=== PATIENT | female | born 1955 | race Caucasian/White ===

== ENCOUNTER → 2020-10-11 | Outpatient (CLI) | payer MEDICARE ==
[~2020-10-11] MED LIST: AMLO5TAB4 PO; ASPI-630 PO; CALC500T30 PO; CARV12.5 PO; CHOL-5 PO; HYDR-2761 PO; OLME40TA12 PO; SERT25TA PO
== END ==
LOC: LAB 12:36
PROVIDERS: ATTEND Surgery
DX: Z01.812 Encounter for preprocedural laboratory examination (principal); Z20.828 Contact with and (suspected) exposure to other viral communicable diseases
CPT/HCPCS: U0003

== ENCOUNTER → 2020-10-31 | Outpatient (CLI) | payer MEDICARE ==
[2020-10-16 10:49] VITALS: BP 170/66
== END ==
LOC: LAB 10:57
PROVIDERS: ATTEND Surgery
DX: Z01.812 Encounter for preprocedural laboratory examination (principal); Z20.828 Contact with and (suspected) exposure to other viral communicable diseases; C50.912 Malignant neoplasm of unspecified site of left female breast
CPT/HCPCS: U0003

== ENCOUNTER 2020-11-05 06:11 | Day surgery (SDC) | payer MEDICARE ==
[~2020-11-05] VITALS: Ht 149.9 cm; Wt 60.0 kg
[2020-11-05] MEDS ORDERED: DEXAMETHASONE SOD PHOS 4 MG/ML VIAL ONE (06:32)
[2020-11-05] MEDS ORDERED: LIDOCAINE 2% PF 5 ML VIAL. ONE (06:32)
[2020-11-05] MEDS ORDERED: PROPOFOL 10 MG/ML (20ML) VIAL. IV ONE (06:32)
[2020-11-05] MEDS ORDERED: ONDANSETRON PF 4 MG/2 ML VIAL. ONE (06:32)
[2020-11-05] MEDS ORDERED: HYDROmorphone 2 MG/ML VIAL IV PRN (07:00)
[2020-11-05] MEDS ORDERED: MORPHINE SULFATE 2 MG/ML VIAL. IV PRN (07:00)
[2020-11-05] MEDS ORDERED: IV RINGERS,LACTATED 1000ML 1,000 ML IV SCH (07:00)
[2020-11-05] MEDS ORDERED: ONDANSETRON PF 4 MG/2 ML VIAL. IV PRN (07:00)
[2020-11-05] MEDS ORDERED: ISOSULFAN BLUE 1% 50 MG/5 ML VIAL. SQ ONE (07:00)
[2020-11-05] MEDS ORDERED: LIDOCAINE 1% PF 2 ML VIAL. ID PRN (07:00)
[2020-11-05] MEDS ORDERED: PROCHLORPERAZINE 10 MG/2 ML VIAL. IV PRN (07:00)
[2020-11-05] MEDS ORDERED: fentaNYL PF VIAL 100 MCG/2 ML VIAL IV PRN ×2 (07:00)
[2020-11-05] MEDS ORDERED: MIDAZOLAM HCL/PF 2 MG/2 ML VIAL. ONE (07:13)
[2020-11-05] MEDS ORDERED: fentaNYL PF VIAL 100 MCG/2 ML VIAL ONE (07:14)
[2020-11-05] MEDS ORDERED: GLYCOPYRROLATE 1 MG/5 ML VIAL. ONE (07:57)
[2020-11-05] MEDS ORDERED: PHENYLEPHRINE in 0.9% NACL PF 1 MG/10 ML SYRINGE. IV ONE (08:00)
--- NOTE | 2020-11-05 08:33 | DISCH ---
DISCHARGE INSTRUCTIONS Condition on Discharge Condition on Discharge: Stable Activity After Discharge Activity Instructions for Disc: Resume previous activity Diet after Discharge Diet after Discharge: Regular Wound Incision Care Wound/Incision Care: Other, see below (keep dressing clean and dry X 72 hours, may then remove and shower) Follow-Up Follow up with: Dr Wright in 1 week in office, call for appointment, KAYLIN WRIGHT MD Nov 05, 2020 08:33
--- NOTE | 2020-11-05 08:37 | PDOC4 ---
Operative Note Operative Note Operative Note: Preoperative Diagnosis: Left breast cancer Postoperative Diagnosis: Same Procedure: Reexcision left lumpectomy Surgeon: Terrence [facility] Staff Nurse: Rivka RESTREPO Anesthesia: General EBL: 5 mL Specimen: Reexcision left lumpectomy superior margin, short stitch superficial, long stitch lateral Drains: None Complications: None Indication: The patient is a 65-year-old female who underwent a left lumpectomy for invasive carcinoma. On the final pathology tumor extended to the superior margin. The other margins were clear. We recommend reexcision of the superior margin. The risks of surgery were discussed with the patient which include bleeding, infection, wound healing problems, scar tissue, pain, anesthetic risk, potential need for additional surgery procedure. She understands and would like to proceed. Description: The patient was taken to the operating room and placed supine in the operating table. General anesthesia was performed. The left breast was prepped with ChloraPrep and draped in a standard surgical manner. The prior scar was located at the 12 o'clock position relatively close to the areola. The old scar was reexcised with a scalpel. Cautery dissection was carried down to the prior breast cavity. The previous seroma was suctioned. The superior margin was clarified. With mostly cautery a wedge segment of the entire superior margin was excised. The dissection was carried down to the pectoralis muscle. The excised specimen was then marked with a short stitch at the superficial aspect and a long silk stitch at the lateral aspect. The specimen was sent to pathology. No other abnormalities were seen. The subcutaneous tissue was approximated with 3-0 Vicryl and skin closed with 4-0 Monocryl. A sterile dressing was then applied. The patient tolerated the procedure well and was sent to the recovery room in stable condition. At the end of the case all counts were correct. KAYLIN WRIGHT MD Nov 05, 2020 08:37
[2020-11-05] MEDS ORDERED: HYDROcodone/APAP 5/325MG 1 TAB TABLET PO ONE (09:15)
[2020-11-05 09:49] VITALS: BP 158/63
--- NOTE | 2020-11-07 15:08 | PATHOLOGY ---
[facility] Accession Number: [id number] . 01 Material submitted: . breast - RE EXCISION OF LEFT BREAST SUPERIOR MARGIN. Modifiers: left . 01 Clinical history: . BREAST CANCER LEFT . 02 Diagnosis: Breast and focal attached skeletal muscle tissue, left breast superior margin re-excision: - Previous lumpectomy site changes showing reactive fibrosis, fat necrosis, foreign body giant cell reaction, and focal squamous metaplasia of biopsy cavity lining - no residual invasive ductal carcinoma identified. - New superior margin of resection negative for tumor. - Fibrocystic changes. - Sclerosing adenosis and columnar cell change,focal. - Focal microcalcifications identified. (JPM:mml; 11/07/2020) [facility] 11/07/2020 1444 Local . 02 Electronically signed: . Darci Patel MD, Pathologist NPI- [id number] . 01 Gross description: . The specimen is received in formalin, labeled "Vicky Davie, reexcision L breast superior margin, short superficial, long lateral". Received is a 5 g lumpectomy specimen measuring 5.9 cm from medial to lateral, 3.1 cm from superficial/anterior to deep/posterior, and 0.8 cm from superior to inferior. The specimen is inked as follows: Superior-blue, inferior-green, lateral-red, medial-yellow, superficial/anterior-black, deep/posterior-orange. Sectioning reveals bright yellow, lobulated to pale goss cut surfaces with fat necrosis identified. No distinct nodules or lesions are noted grossly. The specimen is submitted entirely from lateral to medial aspects in cassettes A1 through A9. The cold ischemic time and time in formalin are not provided. The time out of formalin is 9:50 p.m. on 11/06/2020. (CAA; 11/06/2020) QAC/QAC 11/06/2020 1548 Local . 02 Pathologist provided ICD-10: N60.32, N64.1, N60.82, N60.12, N60.22 . 02 CPT . 259994 Specimen Comment: A courtesy copy of this report has been sent to [phone] Specimen Comment: Report sent to Performed at: 01 [facility] [address], [place] [id number] MD Bulmaro Steel MD Phone: [phone] Performed at: 02 [facility] [address], [place] [id number] MD Darci Patel MD Phone: [phone]
== END 2020-11-05 10:02 | disposition home or self-care (01) ==
LOC: SURG 06:11
PROVIDERS: ATTEND Surgery
DX: C50.912 Malignant neoplasm of unspecified site of left female breast (principal); N60.32 Fibrosclerosis of left breast; N64.1 Fat necrosis of breast; N60.82 Other benign mammary dysplasias of left breast; N60.22 Fibroadenosis of left breast; F41.9 Anxiety disorder, unspecified; M19.90 Unspecified osteoarthritis, unspecified site; Z88.8 Allergy status to other drugs, medicaments and biological substances; Z79.82 Long term (current) use of aspirin; Z90.12 Acquired absence of left breast and nipple; Z98.890 Other specified postprocedural states; Z81.1 Family history of alcohol abuse and dependence; Z82.3 Family history of stroke; Z80.3 Family history of malignant neoplasm of breast; Z98.891 History of uterine scar from previous surgery; Z82.49 Family history of ischemic heart disease and other diseases of the circulatory system
CPT/HCPCS: 19301; J0690; J1100; J2370; J2405; J2704; J3010; J3490; J7120; 88307; J2250; Q9968

== ENCOUNTER → 2020-11-19 | Outpatient (CLI) | payer MEDICARE ==
[2020-11-05 09:49] VITALS: BP 158/63
[2020-11-19 10:42] LABS: BASO # 0.1 x10^3/uL (0.0-0.2); BASO % 1 % (0-3); EOS # 0.2 x10^3/uL (0.0-0.7); EOS % 2 % (0-3); HEMATOCRIT 39.1 % (36.0-47.0); HEMOGLOBIN 13.2 g/dL (12.0-15.5); LYMPH # 0.8 x10^3/uL (1.0-4.8); LYMPH % 9 % (24-48); MEAN CORPUSCULAR HEMOGLOBIN 31 pg (25-35); MEAN CORPUSCULAR HGB CONC 34 g/dL (31-37); MEAN CORPUSCULAR VOLUME 91 fL (79-100); MONO # 0.8 x10^3/uL (0.0-1.1); MONO % 8 % (0-9); NEUT # 7.3 x10^3/uL (1.8-7.7); NEUT % 80 % (31-73); PLATELET COUNT 255 x10^3/uL (140-400); RED BLOOD COUNT 4.29 x10^6/uL (3.50-5.40); RED CELL DISTRIBUTION WIDTH 12.8 % (11.5-14.5); WHITE BLOOD COUNT 9.2 x10^3/uL (4.0-11.0)
[2020-11-19 10:54] LABS: CALCIUM 8.3 mg/dL (8.5-10.1); CREATININE 0.5 mg/dL (0.6-1.0); GFR 123.1; POTASSIUM 3.7 mmol/L (3.5-5.1)
[2020-11-19 10:59] LABS: ALBUMIN 3.4 g/dL (3.4-5.0); TOTAL BILIRUBIN 0.4 mg/dL (0.2-1.0); TOTAL PROTEIN 6.7 g/dL (6.4-8.2)
== END ==
LOC: ONCLAB 10:15
PROVIDERS: ATTEND Internal Medicine Hematology & Oncology
DX: C50.912 Malignant neoplasm of unspecified site of left female breast (principal)
CPT/HCPCS: 36415; 80053; 85025

== ENCOUNTER → 2020-11-26 | Outpatient (CLI) | payer MEDICARE ==
[2020-11-05 09:49] VITALS: BP 158/63
[2020-11-26 11:18] LABS: CALCIUM 8.5 mg/dL (8.5-10.1); CREATININE 0.5 mg/dL (0.6-1.0); GFR 123.1
[2020-11-26 11:22] LABS: BASO # 0.1 x10^3/uL (0.0-0.2); BASO % 2 % (0-3); EOS # 0.2 x10^3/uL (0.0-0.7); EOS % 4 % (0-3); HEMATOCRIT 36.2 % (36.0-47.0); HEMOGLOBIN 12.1 g/dL (12.0-15.5); LYMPH # 0.9 x10^3/uL (1.0-4.8); LYMPH % 20 % (24-48); MEAN CORPUSCULAR HEMOGLOBIN 30 pg (25-35); MEAN CORPUSCULAR HGB CONC 34 g/dL (31-37); MEAN CORPUSCULAR VOLUME 90 fL (79-100); MONO # 0.2 x10^3/uL (0.0-1.1); MONO % 5 % (0-9); NEUT # 3.2 x10^3/uL (1.8-7.7); NEUT % 70 % (31-73); PLATELET COUNT 237 x10^3/uL (140-400); RED BLOOD COUNT 4.01 x10^6/uL (3.50-5.40); RED CELL DISTRIBUTION WIDTH 12.4 % (11.5-14.5); WHITE BLOOD COUNT 4.6 x10^3/uL (4.0-11.0)
[2020-11-26 11:23] LABS: ALBUMIN 3.2 g/dL (3.4-5.0); TOTAL BILIRUBIN 0.3 mg/dL (0.2-1.0); TOTAL PROTEIN 6.3 g/dL (6.4-8.2)
== END ==
LOC: ONCLAB 10:12
PROVIDERS: ATTEND Internal Medicine Hematology & Oncology
DX: C50.912 Malignant neoplasm of unspecified site of left female breast (principal)
CPT/HCPCS: 36415; 80053; 85025

== ENCOUNTER → 2020-11-27 | Outpatient (CLI) | payer MEDICARE ==
[2020-11-05 09:49] VITALS: BP 158/63
--- NOTE | 2020-11-27 16:59 | CARD ---
MR#: [id number] Date of Study: 11/27/2020 Ordering Physician: PAPITO ANGUIANO, Referring Physician: PAPITO ANGUIANO, Tech: Annalee Garner [facility] APPROVED REPORT EXAM: Two-dimensional and M-mode echocardiogram with Doppler and color Doppler. Other Information Quality : AverageHR: 72bpm Rhythm : NSRTechnically limited study due to body habitus. INDICATION Dyspnea 2D DIMENSIONS RVDd3.5 (2.9-3.5cm)Left Atrium(2D)4.1 (1.6-4.0cm) IVSd0.8 (0.7-1.1cm)Aortic Root(2D)3.2 (2.0-3.7cm) LVDd5.1 (3.9-5.9cm)LVOT Diameter1.9 (1.8-2.4cm) PWd0.9 (0.7-1.1cm)LVDs2.7 (2.5-4.0cm) FS (%) 47.6 %SV96.4 ml Aortic Valve AoV Peak Jefferson.213.1cm/sAoV VTI46.6cm AO Peak GR.18.2mmHgLVOT Peak Jefferson.204.3cm/s AO Mean GR.9mmHgAVA (VMAX)2.70cm2 AI P 1/2 Mgsp798yx Mitral Valve MV E Fhcfillq542.5cm/sMV DECEL CMFP256qg MV A Wnykqewg61.7cm/sE/A Ratio1.0 Pulmonary Valve PV Peak Gbmsejkz60.5cm/s Tricuspid Valve TR P. Cezpuagm799wu/sTR Peak Gr.36mmHg Pulmonary Vein S1 Wkfowjgc37.2cm/sD2 Jkkoklxd04.4cm/s PVa vspenuzs742tcsx LEFT VENTRICLE The left ventricle is normal size. There is normal left ventricular wall thickness. The left ventricu lar systolic function is normal and the ejection fraction is within normal range. Left ventricular ej ection fraction is 55 to 60%. There is normal LV segmental wall motion. Transmitral Doppler flow vasile mcih is Grade II-pseudonormal filling dynamics. No left ventricle thrombus noted on this study. RIGHT VENTRICLE The right ventricle is normal size. There is normal right ventricular wall thickness. The right ventr icular systolic function is normal. ATRIA The left atrium is borderline dilated. The right atrium size is normal. The interatrial septum is int act with no evidence for an atrial septal defect or patent foramen ovale as noted on 2-D or Doppler i maging. AORTIC VALVE The aortic valve is normal in structure and function. Doppler and Color Flow revealed mild to moderat e aortic regurgitation. There is no significant aortic valvular stenosis. MITRAL VALVE The mitral valve is normal in structure and function. There is no evidence of mitral valve prolapse. There is no mitral valve stenosis. Doppler and Color-flow revealed mild mitral regurgitation. TRICUSPID VALVE The tricuspid valve is normal in structure and function. Doppler and Color Flow revealed mild tricusp id regurgitation. Estimated PAP 40 mmHg. PULMONIC VALVE The pulmonary valve is normal in structure and function. Doppler and Color Flow revealed mild pulmoni c valvular regurgitation. GREAT VESSELS The aortic root is normal in size. The ascending aorta is normal in size. The pulmonary artery is nor mal. The IVC is normal in size and collapses >50% with inspiration. PERICARDIAL EFFUSION There is no evidence of significant pericardial effusion. Critical Notification Critical Value: No <Conclusion> The left ventricle is normal size. The left ventricular systolic function is normal and the ejection fraction is within normal range. Left ventricular ejection fraction is 55 to 60%. There is normal left ventricular wall thickness. Doppler and Color Flow revealed mild to moderate aortic regurgitation. There is no significant aortic valvular stenosis. Doppler and Color-flow revealed mild mitral regurgitation. Doppler and Color Flow revealed mild tricuspid regurgitation. Estimated PAP 40 mmHg. Signed by : Hossein Claudio MD Electronically Approved : 11/27/2020 16:59:28
== END ==
LOC: ECHO 12:49
PROVIDERS: ATTEND Internal Medicine Hematology & Oncology
DX: Z01.810 Encounter for preprocedural cardiovascular examination (principal); I08.8 Other rheumatic multiple valve diseases
CPT/HCPCS: 93306

== ENCOUNTER → 2020-12-03 | Outpatient (CLI) | payer MEDICARE ==
[2020-11-05 09:49] VITALS: BP 158/63
[2020-12-03 10:09] LABS: BASO # 0.1 x10^3/uL (0.0-0.2); BASO % 3 % (0-3); EOS # 0.1 x10^3/uL (0.0-0.7); EOS % 5 % (0-3); HEMATOCRIT 35.2 % (36.0-47.0); LYMPH # 0.7 x10^3/uL (1.0-4.8); LYMPH % 26 % (24-48); MEAN CORPUSCULAR HEMOGLOBIN 31 pg (25-35); MEAN CORPUSCULAR HGB CONC 34 g/dL (31-37); MEAN CORPUSCULAR VOLUME 91 fL (79-100); MONO # 0.2 x10^3/uL (0.0-1.1); MONO % 6 % (0-9); NEUT # 1.6 x10^3/uL (1.8-7.7); NEUT % 60 % (31-73); PLATELET COUNT 274 x10^3/uL (140-400); RED BLOOD COUNT 3.89 x10^6/uL (3.50-5.40); RED CELL DISTRIBUTION WIDTH 12.6 % (11.5-14.5); WHITE BLOOD COUNT 2.6 x10^3/uL (4.0-11.0)
[2020-12-03 10:38] LABS: ALBUMIN 3.3 g/dL (3.4-5.0); ALBUMIN/GLOBULIN RATIO 1.1 (1.0-1.7); CALCIUM 8.4 mg/dL (8.5-10.1); CREATININE 0.6 mg/dL (0.6-1.0); GFR 99.7; POTASSIUM 3.9 mmol/L (3.5-5.1); TOTAL BILIRUBIN 0.3 mg/dL (0.2-1.0); TOTAL PROTEIN 6.3 g/dL (6.4-8.2)
== END ==
LOC: ONCLAB 09:51
PROVIDERS: ATTEND Internal Medicine Hematology & Oncology
DX: C50.912 Malignant neoplasm of unspecified site of left female breast (principal)
CPT/HCPCS: 36415; 80053; 85025

== ENCOUNTER → 2020-12-10 | Outpatient (CLI) | payer MEDICARE ==
[2020-12-10 10:29] LABS: BASO # 0.1 x10^3/uL (0.0-0.2); BASO % 1 % (0-3); EOS # 0.2 x10^3/uL (0.0-0.7); EOS % 3 % (0-3); HEMATOCRIT 37.4 % (36.0-47.0); HEMOGLOBIN 12.5 g/dL (12.0-15.5); LYMPH # 1.3 x10^3/uL (1.0-4.8); LYMPH % 18 % (24-48); MEAN CORPUSCULAR HEMOGLOBIN 30 pg (25-35); MEAN CORPUSCULAR HGB CONC 33 g/dL (31-37); MEAN CORPUSCULAR VOLUME 91 fL (79-100); MONO % 13 % (0-9); NEUT # 4.8 x10^3/uL (1.8-7.7); NEUT % 65 % (31-73); PLATELET COUNT 349 x10^3/uL (140-400); RED BLOOD COUNT 4.11 x10^6/uL (3.50-5.40); RED CELL DISTRIBUTION WIDTH 13.2 % (11.5-14.5); WHITE BLOOD COUNT 7.3 x10^3/uL (4.0-11.0)
[2020-12-10 10:36] LABS: CALCIUM 8.9 mg/dL (8.5-10.1); CREATININE 0.6 mg/dL (0.6-1.0); GFR 99.7; POTASSIUM 4.2 mmol/L (3.5-5.1)
[2020-12-10 10:41] LABS: ALBUMIN 3.4 g/dL (3.4-5.0); ALBUMIN/GLOBULIN RATIO 1.1 (1.0-1.7); TOTAL BILIRUBIN 0.2 mg/dL (0.2-1.0); TOTAL PROTEIN 6.6 g/dL (6.4-8.2)
== END ==
LOC: ONCLAB 10:10
PROVIDERS: ATTEND Physician Assistant
DX: C50.912 Malignant neoplasm of unspecified site of left female breast (principal); E55.9 Vitamin D deficiency, unspecified
CPT/HCPCS: 36415; 80053; 82306; 85025

== ENCOUNTER → 2020-12-17 | Outpatient (CLI) | payer MEDICARE ==
[2020-12-17 09:59] LABS: WHITE BLOOD COUNT 8.2 x10^3/uL (4.0-11.0)
[2020-12-17 10:00] LABS: HEMATOCRIT 35.2 % (36.0-47.0); HEMOGLOBIN 12.1 g/dL (12.0-15.5); MEAN CORPUSCULAR HEMOGLOBIN 31 pg (25-35); MEAN CORPUSCULAR HGB CONC 34 g/dL (31-37); MEAN CORPUSCULAR VOLUME 91 fL (79-100); RED BLOOD COUNT 3.89 x10^6/uL (3.50-5.40)
[2020-12-17 10:01] LABS: BASO # 0.1 x10^3/uL (0.0-0.2); BASO % 14 % (0-3); EOS # 0.2 x10^3/uL (0.0-0.7); EOS % 3 % (0-3); LYMPH # 0.9 x10^3/uL (1.0-4.8); LYMPH % 11 % (24-48); MONO # 0.3 x10^3/uL (0.0-1.1); MONO % 4 % (0-9); NEUT # 6.7 x10^3/uL (1.8-7.7); NEUT % 82 % (31-73); PLATELET COUNT 277 x10^3/uL (140-400); RED CELL DISTRIBUTION WIDTH 13.5 % (11.5-14.5)
[2020-12-17 10:15] LABS: ALBUMIN 3.3 g/dL (3.4-5.0); ALBUMIN/GLOBULIN RATIO 1.1 (1.0-1.7); CALCIUM 8.8 mg/dL (8.5-10.1); CREATININE 0.5 mg/dL (0.6-1.0); GFR 123.1; TOTAL BILIRUBIN 0.3 mg/dL (0.2-1.0); TOTAL PROTEIN 6.4 g/dL (6.4-8.2)
== END ==
LOC: ONCLAB 09:32
PROVIDERS: ATTEND Internal Medicine Hematology & Oncology
DX: C50.912 Malignant neoplasm of unspecified site of left female breast (principal)
CPT/HCPCS: 36415; 80053; 85025

== ENCOUNTER → 2020-12-24 | Outpatient (CLI) | payer MEDICARE ==
[2020-12-24 09:47] LABS: BASO # 0.2 x10^3/uL (0.0-0.2); BASO % 3 % (0-3); EOS # 0.3 x10^3/uL (0.0-0.7); EOS % 8 % (0-3); HEMATOCRIT 34.6 % (36.0-47.0); HEMOGLOBIN 11.6 g/dL (12.0-15.5); LYMPH # 0.8 x10^3/uL (1.0-4.8); LYMPH % 19 % (24-48); MEAN CORPUSCULAR HEMOGLOBIN 31 pg (25-35); MEAN CORPUSCULAR HGB CONC 34 g/dL (31-37); MEAN CORPUSCULAR VOLUME 92 fL (79-100); MONO # 0.4 x10^3/uL (0.0-1.1); MONO % 8 % (0-9); NEUT # 2.7 x10^3/uL (1.8-7.7); NEUT % 62 % (31-73); PLATELET COUNT 342 x10^3/uL (140-400); RED BLOOD COUNT 3.78 x10^6/uL (3.50-5.40); RED CELL DISTRIBUTION WIDTH 13.7 % (11.5-14.5); WHITE BLOOD COUNT 4.4 x10^3/uL (4.0-11.0)
[2020-12-24 10:12] LABS: CALCIUM 8.1 mg/dL (8.5-10.1); CREATININE 0.6 mg/dL (0.6-1.0); GFR 99.7; POTASSIUM 4.2 mmol/L (3.5-5.1)
[2020-12-24 10:18] LABS: ALBUMIN 3.2 g/dL (3.4-5.0); ALBUMIN/GLOBULIN RATIO 1.1 (1.0-1.7); TOTAL BILIRUBIN 0.3 mg/dL (0.2-1.0); TOTAL PROTEIN 6.2 g/dL (6.4-8.2)
== END ==
LOC: ONCLAB 09:30
PROVIDERS: ATTEND Physician Assistant
DX: C50.912 Malignant neoplasm of unspecified site of left female breast (principal)
CPT/HCPCS: 36415; 80053; 85025

== ENCOUNTER → 2020-12-31 | Outpatient (CLI) | payer MEDICARE ==
[2020-12-31 09:48] LABS: BASO # 0.2 x10^3/uL (0.0-0.2); BASO % 4 % (0-3); EOS # 0.4 x10^3/uL (0.0-0.7); EOS % 8 % (0-3); HEMATOCRIT 33.2 % (36.0-47.0); HEMOGLOBIN 11.3 g/dL (12.0-15.5); LYMPH # 0.8 x10^3/uL (1.0-4.8); LYMPH % 17 % (24-48); MEAN CORPUSCULAR HEMOGLOBIN 31 pg (25-35); MEAN CORPUSCULAR HGB CONC 34 g/dL (31-37); MEAN CORPUSCULAR VOLUME 91 fL (79-100); MONO # 0.5 x10^3/uL (0.0-1.1); MONO % 10 % (0-9); NEUT % 62 % (31-73); PLATELET COUNT 339 x10^3/uL (140-400); RED BLOOD COUNT 3.63 x10^6/uL (3.50-5.40); RED CELL DISTRIBUTION WIDTH 14.1 % (11.5-14.5); WHITE BLOOD COUNT 4.9 x10^3/uL (4.0-11.0)
[2020-12-31 09:52] LABS: CALCIUM 8.4 mg/dL (8.5-10.1); CREATININE 0.7 mg/dL (0.6-1.0); GFR 83.5; POTASSIUM 3.8 mmol/L (3.5-5.1)
[2020-12-31 09:58] LABS: ALBUMIN 3.1 g/dL (3.4-5.0); TOTAL BILIRUBIN 0.3 mg/dL (0.2-1.0); TOTAL PROTEIN 6.2 g/dL (6.4-8.2)
[2020-12-31 11:19] LABS: % BANDS 1 % (0-9); % BASOS 4 % (0-3); % EOS 5 % (0-5); % LYMPHS 18 % (24-48); % MONOS 4 % (0-10); % SEGS 68 % (35-66); NUCLEATED RBC 1; PLT ESTIMATE ADEQUATE (ADEQUATE)
== END ==
LOC: ONCLAB 09:23
PROVIDERS: ATTEND Internal Medicine Hematology & Oncology
DX: C50.912 Malignant neoplasm of unspecified site of left female breast (principal)
CPT/HCPCS: 36415; 80053; 85007; 85025

== ENCOUNTER → 2021-01-07 | Outpatient (CLI) | payer MEDICARE ==
[2021-01-07 09:43] LABS: BASO # 0.1 x10^3/uL (0.0-0.2); BASO % 2 % (0-3); EOS # 0.3 x10^3/uL (0.0-0.7); EOS % 4 % (0-3); HEMATOCRIT 28.2 % (36.0-47.0); HEMOGLOBIN 9.8 g/dL (12.0-15.5); LYMPH # 0.7 x10^3/uL (1.0-4.8); LYMPH % 11 % (24-48); MEAN CORPUSCULAR HEMOGLOBIN 31 pg (25-35); MEAN CORPUSCULAR HGB CONC 35 g/dL (31-37); MEAN CORPUSCULAR VOLUME 91 fL (79-100); MONO # 1.1 x10^3/uL (0.0-1.1); MONO % 18 % (0-9); NEUT # 3.9 x10^3/uL (1.8-7.7); NEUT % 65 % (31-73); PLATELET COUNT 353 x10^3/uL (140-400); RED BLOOD COUNT 3.11 x10^6/uL (3.50-5.40); WHITE BLOOD COUNT 6.1 x10^3/uL (4.0-11.0)
[2021-01-07 09:51] LABS: CALCIUM 8.3 mg/dL (8.5-10.1); CREATININE 0.7 mg/dL (0.6-1.0); GFR 83.5; POTASSIUM 3.1 mmol/L (3.5-5.1)
[2021-01-07 09:57] LABS: ALBUMIN 2.5 g/dL (3.4-5.0); ALBUMIN/GLOBULIN RATIO 0.7 (1.0-1.7); TOTAL BILIRUBIN 0.4 mg/dL (0.2-1.0); TOTAL PROTEIN 6.1 g/dL (6.4-8.2)
== END ==
LOC: ONCLAB 08:54
PROVIDERS: ATTEND Internal Medicine Hematology & Oncology
DX: C50.912 Malignant neoplasm of unspecified site of left female breast (principal)
CPT/HCPCS: 36415; 80053; 85025

== ENCOUNTER → 2021-01-14 | Outpatient (CLI) | payer MEDICARE ==
[2021-01-14 11:06] LABS: BASO # 0.1 x10^3/uL (0.0-0.2); BASO % 2 % (0-3); EOS # 0.2 x10^3/uL (0.0-0.7); EOS % 2 % (0-3); HEMATOCRIT 26.3 % (36.0-47.0); HEMOGLOBIN 9.1 g/dL (12.0-15.5); LYMPH # 0.6 x10^3/uL (1.0-4.8); LYMPH % 7 % (24-48); MEAN CORPUSCULAR HEMOGLOBIN 31 pg (25-35); MEAN CORPUSCULAR HGB CONC 35 g/dL (31-37); MEAN CORPUSCULAR VOLUME 90 fL (79-100); MONO # 1.2 x10^3/uL (0.0-1.1); MONO % 14 % (0-9); NEUT # 6.4 x10^3/uL (1.8-7.7); NEUT % 75 % (31-73); PLATELET COUNT 434 x10^3/uL (140-400); RED BLOOD COUNT 2.93 x10^6/uL (3.50-5.40); WHITE BLOOD COUNT 8.6 x10^3/uL (4.0-11.0)
[2021-01-14 11:23] LABS: ALBUMIN 2.3 g/dL (3.4-5.0); ALBUMIN/GLOBULIN RATIO 0.6 (1.0-1.7); CALCIUM 8.5 mg/dL (8.5-10.1); CREATININE 1.3 mg/dL (0.6-1.0); GFR 40.9; TOTAL BILIRUBIN 0.3 mg/dL (0.2-1.0); TOTAL PROTEIN 6.1 g/dL (6.4-8.2)
[2021-01-14 11:24] LABS: POTASSIUM 2.6 mmol/L (3.5-5.1)
== END ==
LOC: ONCLAB 08:50
PROVIDERS: ATTEND Physician Assistant
DX: C50.912 Malignant neoplasm of unspecified site of left female breast (principal)
CPT/HCPCS: 36415; 80053; 85025

== ENCOUNTER → 2021-01-21 | Outpatient (CLI) | payer MEDICARE ==
[2021-01-21 10:58] LABS: CALCIUM 8.6 mg/dL (8.5-10.1); CREATININE 1.7 mg/dL (0.6-1.0); POTASSIUM 5.1 mmol/L (3.5-5.1)
[2021-01-21 11:04] LABS: ALBUMIN 2.3 g/dL (3.4-5.0); ALBUMIN/GLOBULIN RATIO 0.6 (1.0-1.7); TOTAL BILIRUBIN 0.4 mg/dL (0.2-1.0); TOTAL PROTEIN 6.2 g/dL (6.4-8.2)
[2021-01-21 11:10] LABS: BASO # 0.2 x10^3/uL (0.0-0.2); BASO % 2 % (0-3); EOS # 0.2 x10^3/uL (0.0-0.7); EOS % 3 % (0-3); HEMATOCRIT 25.5 % (36.0-47.0); HEMOGLOBIN 8.7 g/dL (12.0-15.5); LYMPH # 0.6 x10^3/uL (1.0-4.8); LYMPH % 7 % (24-48); MEAN CORPUSCULAR HEMOGLOBIN 31 pg (25-35); MEAN CORPUSCULAR HGB CONC 34 g/dL (31-37); MEAN CORPUSCULAR VOLUME 91 fL (79-100); MONO # 1.1 x10^3/uL (0.0-1.1); MONO % 13 % (0-9); NEUT # 6.2 x10^3/uL (1.8-7.7); NEUT % 76 % (31-73); PLATELET COUNT 481 x10^3/uL (140-400); RED BLOOD COUNT 2.81 x10^6/uL (3.50-5.40); RED CELL DISTRIBUTION WIDTH 14.5 % (11.5-14.5); WHITE BLOOD COUNT 8.2 x10^3/uL (4.0-11.0)
== END ==
LOC: ONCLAB 09:36
PROVIDERS: ATTEND Internal Medicine Hematology & Oncology
DX: C50.912 Malignant neoplasm of unspecified site of left female breast (principal)
CPT/HCPCS: 36415; 80053; 85025

== ENCOUNTER → 2021-01-28 | Outpatient (CLI) | payer MEDICARE ==
[2021-01-28 10:35] LABS: BASO # 0.1 x10^3/uL (0.0-0.2); BASO % 2 % (0-3); EOS # 0.2 x10^3/uL (0.0-0.7); EOS % 3 % (0-3); HEMATOCRIT 24.2 % (36.0-47.0); HEMOGLOBIN 8.2 g/dL (12.0-15.5); LYMPH # 0.6 x10^3/uL (1.0-4.8); LYMPH % 10 % (24-48); MEAN CORPUSCULAR HEMOGLOBIN 30 pg (25-35); MEAN CORPUSCULAR HGB CONC 34 g/dL (31-37); MEAN CORPUSCULAR VOLUME 89 fL (79-100); MONO # 0.8 x10^3/uL (0.0-1.1); MONO % 13 % (0-9); NEUT # 4.5 x10^3/uL (1.8-7.7); NEUT % 72 % (31-73); PLATELET COUNT 317 x10^3/uL (140-400); RED BLOOD COUNT 2.71 x10^6/uL (3.50-5.40); RED CELL DISTRIBUTION WIDTH 14.3 % (11.5-14.5); WHITE BLOOD COUNT 6.3 x10^3/uL (4.0-11.0)
[2021-01-28 10:49] LABS: ALBUMIN 2.4 g/dL (3.4-5.0); ALBUMIN/GLOBULIN RATIO 0.6 (1.0-1.7); CALCIUM 8.3 mg/dL (8.5-10.1); CREATININE 1.6 mg/dL (0.6-1.0); GFR 32.2; TOTAL BILIRUBIN 0.3 mg/dL (0.2-1.0); TOTAL PROTEIN 6.1 g/dL (6.4-8.2)
[2021-01-28 10:52] LABS: POTASSIUM 2.9 mmol/L (3.5-5.1)
== END ==
LOC: ONCLAB 09:22
PROVIDERS: ATTEND Internal Medicine Hematology & Oncology
DX: C50.912 Malignant neoplasm of unspecified site of left female breast (principal)
CPT/HCPCS: 36415; 80053; 85025

== ENCOUNTER → 2021-02-04 | Outpatient (CLI) | payer MEDICARE ==
[2021-02-04 10:11] LABS: BASO # 0.2 x10^3/uL (0.0-0.2); BASO % 2 % (0-3); EOS # 0.5 x10^3/uL (0.0-0.7); EOS % 5 % (0-3); HEMATOCRIT 23.4 % (36.0-47.0); HEMOGLOBIN 7.9 g/dL (12.0-15.5); LYMPH # 0.9 x10^3/uL (1.0-4.8); LYMPH % 10 % (24-48); MEAN CORPUSCULAR HEMOGLOBIN 30 pg (25-35); MEAN CORPUSCULAR HGB CONC 34 g/dL (31-37); MEAN CORPUSCULAR VOLUME 89 fL (79-100); MONO % 10 % (0-9); NEUT % 74 % (31-73); PLATELET COUNT 368 x10^3/uL (140-400); RED BLOOD COUNT 2.63 x10^6/uL (3.50-5.40); RED CELL DISTRIBUTION WIDTH 15.2 % (11.5-14.5); WHITE BLOOD COUNT 9.5 x10^3/uL (4.0-11.0)
[2021-02-04 10:20] LABS: CALCIUM 8.4 mg/dL (8.5-10.1); CREATININE 2.3 mg/dL (0.6-1.0); GFR 21.2; POTASSIUM 5.1 mmol/L (3.5-5.1)
[2021-02-04 10:26] LABS: ALBUMIN 2.4 g/dL (3.4-5.0); ALBUMIN/GLOBULIN RATIO 0.6 (1.0-1.7); TOTAL BILIRUBIN 0.2 mg/dL (0.2-1.0); TOTAL PROTEIN 6.3 g/dL (6.4-8.2)
[2021-02-04 11:04] LABS: URIC ACID 4.3 mg/dL (2.6-6.0)
[2021-02-04 11:41] LABS: BILIRUBIN,URINE NEGATIVE (NEG); CLARITY,URINE CLEAR; COLOR,URINE YELLOW; NITRITE,URINE NEGATIVE (NEG); PROTEIN,URINE 30 mg/dL (NEG-TRACE); UROBILINOGEN,URINE 0.2 mg/dL (0.2 mg/dL)
[2021-02-04 12:03] LABS: HYALINE CASTS, URINE FEW /HPF
[2021-02-04 12:04] LABS: WBC,URINE 20-40 /HPF (0-4)
[2021-02-04 12:05] LABS: BACTERIA,URINE FEW /HPF (0-FEW)
[2021-02-04 13:58] LABS: CALCIUM 7.7 mg/dL (8.5-10.1); GFR 24.9; POTASSIUM 4.7 mmol/L (3.5-5.1)
== END ==
LOC: ONCLAB 09:55
PROVIDERS: ATTEND Physician Assistant
DX: C50.912 Malignant neoplasm of unspecified site of left female breast (principal)
CPT/HCPCS: 36415; 80048; 80053; 81001; 84550; 85025; 87086

== ENCOUNTER → 2021-02-05 | Outpatient (CLI) | payer MEDICARE ==
--- NOTE | 2021-02-06 08:21 | KCIC ---
COMPLETE RENAL ULTRASOUND Indication: Acute kidney injury. Comparison: None. Procedure: Transabdominal ultrasound images are obtained of the kidneys and bladder. Findings: The kidneys demonstrate normal cortical echotexture. Corticomedullary differentiation is preserved. T here is no hydronephrosis. The right kidney measures 12.6 cm. The left kidney measures 12.6 cm. The urinary bladder is mostly decompressed, otherwise normal. IMPRESSION: No hydronephrosis. Electronically signed by: Mario Bradshaw MD (02/06/2021 8:18 AM) [id number]
== END ==
LOC: KCIC US 14:25
PROVIDERS: ATTEND Physician Assistant
DX: N17.9 Acute kidney failure, unspecified (principal); C50.912 Malignant neoplasm of unspecified site of left female breast
CPT/HCPCS: 76770

== ENCOUNTER → 2021-02-05 | Outpatient (CLI) | payer MEDICARE ==
[2021-02-05 10:58] LABS: CALCIUM 8.2 mg/dL (8.5-10.1); GFR 24.9
[2021-02-05 14:16] LABS: CALCIUM 7.6 mg/dL (8.5-10.1); CREATININE 1.7 mg/dL (0.6-1.0); POTASSIUM 4.6 mmol/L (3.5-5.1)
== END ==
LOC: ONCLAB 10:34
PROVIDERS: ATTEND Physician Assistant
DX: C50.912 Malignant neoplasm of unspecified site of left female breast (principal)
CPT/HCPCS: 36415; 80048

== ENCOUNTER → 2021-02-06 | Outpatient (CLI) | payer MEDICARE ==
[2021-02-06 13:52] LABS: CREATININE 1.9 mg/dL (0.6-1.0); GFR 26.4; POTASSIUM 4.4 mmol/L (3.5-5.1)
== END ==
LOC: ONCLAB 13:13
PROVIDERS: ATTEND Physician Assistant
DX: C50.912 Malignant neoplasm of unspecified site of left female breast (principal)
CPT/HCPCS: 36415; 80048

== ENCOUNTER → 2021-02-12 | Outpatient (CLI) | payer MEDICARE ==
[2021-02-12 11:10] LABS: CALCIUM 8.5 mg/dL (8.5-10.1); CREATININE 2.1 mg/dL (0.6-1.0); GFR 23.5; POTASSIUM 4.5 mmol/L (3.5-5.1)
[2021-02-12 11:18] LABS: ALBUMIN 2.6 g/dL (3.4-5.0); ALBUMIN/GLOBULIN RATIO 0.6 (1.0-1.7); TOTAL BILIRUBIN 0.3 mg/dL (0.2-1.0); TOTAL PROTEIN 6.7 g/dL (6.4-8.2)
[2021-02-12 11:21] LABS: BASO % 0 % (0-3); EOS # 0.5 x10^3/uL (0.0-0.7); EOS % 5 % (0-3); HEMATOCRIT 22.5 % (36.0-47.0); HEMOGLOBIN 7.6 g/dL (12.0-15.5); LYMPH # 0.9 x10^3/uL (1.0-4.8); LYMPH % 8 % (24-48); MEAN CORPUSCULAR HEMOGLOBIN 30 pg (25-35); MEAN CORPUSCULAR HGB CONC 34 g/dL (31-37); MEAN CORPUSCULAR VOLUME 89 fL (79-100); MONO % 9 % (0-9); NEUT % 78 % (31-73); PLATELET COUNT 389 x10^3/uL (140-400); RED BLOOD COUNT 2.53 x10^6/uL (3.50-5.40); RED CELL DISTRIBUTION WIDTH 15.6 % (11.5-14.5); WHITE BLOOD COUNT 11.6 x10^3/uL (4.0-11.0)
== END ==
LOC: ONCLAB 10:32
PROVIDERS: ATTEND Internal Medicine Hematology & Oncology
DX: C50.912 Malignant neoplasm of unspecified site of left female breast (principal)
CPT/HCPCS: 36415; 80053; 85025

== ENCOUNTER → 2021-02-19 | Outpatient (CLI) | payer MEDICARE ==
[2021-02-19 11:32] LABS: CALCIUM 8.5 mg/dL (8.5-10.1); CREATININE 1.4 mg/dL (0.6-1.0); GFR 37.5; POTASSIUM 3.6 mmol/L (3.5-5.1)
[2021-02-19 11:49] LABS: ALBUMIN 2.8 g/dL (3.4-5.0); ALBUMIN/GLOBULIN RATIO 0.7 (1.0-1.7); TOTAL BILIRUBIN 0.3 mg/dL (0.2-1.0); TOTAL PROTEIN 7.1 g/dL (6.4-8.2)
[2021-02-19 11:52] LABS: BASO # 0.1 x10^3/uL (0.0-0.2); BASO % 1 % (0-3); EOS # 0.5 x10^3/uL (0.0-0.7); EOS % 6 % (0-3); HEMATOCRIT 22.2 % (36.0-47.0); HEMOGLOBIN 7.5 g/dL (12.0-15.5); LYMPH % 12 % (24-48); MEAN CORPUSCULAR HEMOGLOBIN 30 pg (25-35); MEAN CORPUSCULAR HGB CONC 34 g/dL (31-37); MEAN CORPUSCULAR VOLUME 88 fL (79-100); MONO # 0.8 x10^3/uL (0.0-1.1); MONO % 9 % (0-9); NEUT # 6.1 x10^3/uL (1.8-7.7); NEUT % 72 % (31-73); PLATELET COUNT 395 x10^3/uL (140-400); RED BLOOD COUNT 2.51 x10^6/uL (3.50-5.40); RED CELL DISTRIBUTION WIDTH 15.5 % (11.5-14.5); WHITE BLOOD COUNT 8.5 x10^3/uL (4.0-11.0)
== END ==
LOC: ONCLAB 10:59
PROVIDERS: ATTEND Internal Medicine Hematology & Oncology
DX: C50.912 Malignant neoplasm of unspecified site of left female breast (principal)
CPT/HCPCS: 36415; 80053; 82607; 82668; 82728; 82746; 83540; 83550; 85025

== ENCOUNTER → 2021-02-26 | Outpatient (CLI) | payer MEDICARE ==
[2021-02-26 12:58] LABS: BASO # 0.1 x10^3/uL (0.0-0.2); BASO % 1 % (0-3); EOS # 0.7 x10^3/uL (0.0-0.7); EOS % 8 % (0-3); HEMATOCRIT 21.7 % (36.0-47.0); HEMOGLOBIN 7.3 g/dL (12.0-15.5); LYMPH # 1.2 x10^3/uL (1.0-4.8); LYMPH % 14 % (24-48); MEAN CORPUSCULAR HEMOGLOBIN 30 pg (25-35); MEAN CORPUSCULAR HGB CONC 34 g/dL (31-37); MEAN CORPUSCULAR VOLUME 88 fL (79-100); MONO % 12 % (0-9); NEUT # 5.8 x10^3/uL (1.8-7.7); NEUT % 66 % (31-73); PLATELET COUNT 323 x10^3/uL (140-400); RED BLOOD COUNT 2.46 x10^6/uL (3.50-5.40); RED CELL DISTRIBUTION WIDTH 15.4 % (11.5-14.5); WHITE BLOOD COUNT 8.8 x10^3/uL (4.0-11.0)
[2021-02-26 13:14] LABS: CALCIUM 8.6 mg/dL (8.5-10.1); GFR 55.3
[2021-02-26 13:16] LABS: POTASSIUM 2.6 mmol/L (3.5-5.1)
== END ==
LOC: ONCLAB 12:30
PROVIDERS: ATTEND Physician Assistant
DX: C50.912 Malignant neoplasm of unspecified site of left female breast (principal)
CPT/HCPCS: 36415; 80048; 83921; 85025

== ENCOUNTER → 2021-02-26 | Outpatient (CLI) | payer MEDICARE ==
--- NOTE | 2021-02-27 09:09 | CARD ---
MR#: [id number] Date of Study: 02/26/2021 Ordering Physician: MONICO MARTINEZ, Referring Physician: MONICO MARTINEZ, Tech: Ledy Squires, [facility] APPROVED REPORT EXAM: Two-dimensional and M-mode echocardiogram with Doppler and color Doppler. Other Information Quality : AverageHR: 70bpm INDICATION Hypertension/HCVD Breast Cancer 2D DIMENSIONS RVDd2.3 (2.9-3.5cm)Left Atrium(2D)2.9 (1.6-4.0cm) IVSd0.9 (0.7-1.1cm)Aortic Root(2D)3.0 (2.0-3.7cm) LVDd5.5 (3.9-5.9cm)LVOT Diameter2.0 (1.8-2.4cm) PWd0.8 (0.7-1.1cm)LVDs3.8 (2.5-4.0cm) FS (%) 31.1 %SV84.6 ml LVEF(%)58.2 (>50%) Aortic Valve AoV Peak Jefferson.210.9cm/sAoV VTI43.1cm AO Peak GR.17.8mmHgLVOT Peak Jefferson.183.6cm/s LVOT VTI 36.74cmAO Mean GR.8mmHg CATHLEEN (VMAX)2.60tl7UZY (VTI)2.58cm2 AI P 1/2 Moxq611qb Mitral Valve MV E Nwrnqnsm120.2cm/sMV DECEL HXLI935ym MV A Irdbgziv891.1cm/sMV OFD70wo E/A Ratio1.1MVA (PHT)6.26cm2 TDI E/Lateral E'8.8E/Medial E'10.5 Pulmonary Valve PV Peak Eabcebtz62.8cm/sPV Peak Grad.2mmHg Tricuspid Valve TR P. Uhwtcxxl717gw/sRAP AWYYESWO1cuXx TR Peak Gr.00paIqVWLU32buUt Pulmonary Vein S1 Pujlzjpc36.8cm/sD2 Mctxwxpo18.9cm/s PVa qkdmkeuf005cnbh LEFT VENTRICLE The left ventricle is normal size. There is normal left ventricular wall thickness. The left ventricu lar systolic function is normal and the ejection fraction is within normal range. The Ejection Fracti on is 55-60%. There is normal LV segmental wall motion. Transmitral Doppler flow pattern is Grade II- pseudonormal filling dynamics. RIGHT VENTRICLE The right ventricle is normal size. There is normal right ventricular wall thickness. The right ventr icular systolic function is normal. ATRIA The left atrium is borderline dilated. The right atrium size is normal. The interatrial septum is int act with no evidence for an atrial septal defect or patent foramen ovale as noted on 2-D or Doppler i maging. AORTIC VALVE The aortic valve is thickened but opens well. Doppler and Color Flow revealed moderate aortic regurgi tation. Calculated aortic valve area is 2 cm2 with maximum pressure gradient of 22 mmHg and mean pres sure gradient of 10 mmHg. There is no significant aortic valvular stenosis. MITRAL VALVE The mitral valve is normal in structure and function. There is no evidence of mitral valve prolapse. There is no mitral valve stenosis. Doppler and Color-flow revealed trace mitral regurgitation. TRICUSPID VALVE The tricuspid valve is normal in structure and function. Doppler and Color Flow revealed mild tricusp id regurgitation with an estimated PAP of 51 mmHg. There is no tricuspid valve stenosis. PULMONIC VALVE The pulmonic valve is not well visualized. Doppler and Color Flow revealed mild pulmonic valvular reg urgitation. GREAT VESSELS The aortic root is normal in size. The ascending aorta is normal in size. The IVC is normal in size a nd collapses >50% with inspiration. PERICARDIAL EFFUSION There is no evidence of significant pericardial effusion. Critical Notification Critical Value: No <Conclusion> The left ventricular systolic function is normal. The Ejection Fraction is 55-60%. There is normal LV segmental wall motion. Transmitral Doppler flow pattern is Grade II-pseudonormal filling dynamics. Moderate aortic regurgitation. Trace mitral regurgitation. Mild tricuspid regurgitation with an estimated PAP of 51 mmHg. There is no evidence of significant pericardial effusion. Signed by : Harjeet Esteban, Electronically Approved : 02/27/2021 09:08:55
== END ==
LOC: ECHO 11:04
PROVIDERS: ATTEND Physician Assistant
DX: C50.912 Malignant neoplasm of unspecified site of left female breast (principal); I08.8 Other rheumatic multiple valve diseases
CPT/HCPCS: 93306

== ENCOUNTER → 2021-03-05 | Outpatient (CLI) | payer MEDICARE ==
[2021-03-05 10:07] LABS: BASO # 0.1 x10^3/uL (0.0-0.2); BASO % 1 % (0-3); EOS # 0.7 x10^3/uL (0.0-0.7); EOS % 8 % (0-3); HEMATOCRIT 24.6 % (36.0-47.0); LYMPH # 0.9 x10^3/uL (1.0-4.8); LYMPH % 11 % (24-48); MEAN CORPUSCULAR HEMOGLOBIN 30 pg (25-35); MEAN CORPUSCULAR HGB CONC 33 g/dL (31-37); MEAN CORPUSCULAR VOLUME 91 fL (79-100); MONO # 0.8 x10^3/uL (0.0-1.1); MONO % 10 % (0-9); NEUT # 5.6 x10^3/uL (1.8-7.7); NEUT % 69 % (31-73); PLATELET COUNT 300 x10^3/uL (140-400); RED BLOOD COUNT 2.72 x10^6/uL (3.50-5.40); RED CELL DISTRIBUTION WIDTH 16.2 % (11.5-14.5)
[2021-03-05 10:21] LABS: CREATININE 1.2 mg/dL (0.6-1.0); GFR 44.8; POTASSIUM 3.8 mmol/L (3.5-5.1)
[2021-03-05 10:32] LABS: ALBUMIN 3.2 g/dL (3.4-5.0); ALBUMIN/GLOBULIN RATIO 0.9 (1.0-1.7); TOTAL BILIRUBIN 0.3 mg/dL (0.2-1.0); TOTAL PROTEIN 6.8 g/dL (6.4-8.2)
== END ==
LOC: ONCLAB 09:34
PROVIDERS: ATTEND Internal Medicine Hematology & Oncology
DX: C50.912 Malignant neoplasm of unspecified site of left female breast (principal)
CPT/HCPCS: 36415; 80053; 85025

== ENCOUNTER → 2021-03-26 | Outpatient (CLI) | payer MEDICARE ==
[2021-03-26 10:15] LABS: BASO # 0.1 x10^3/uL (0.0-0.2); BASO % 2 % (0-3); EOS % 15 % (0-3); HEMATOCRIT 27.6 % (36.0-47.0); HEMOGLOBIN 9.1 g/dL (12.0-15.5); LYMPH # 0.8 x10^3/uL (1.0-4.8); LYMPH % 13 % (24-48); MEAN CORPUSCULAR HEMOGLOBIN 30 pg (25-35); MEAN CORPUSCULAR HGB CONC 33 g/dL (31-37); MEAN CORPUSCULAR VOLUME 91 fL (79-100); MONO # 0.7 x10^3/uL (0.0-1.1); MONO % 11 % (0-9); NEUT # 3.8 x10^3/uL (1.8-7.7); NEUT % 59 % (31-73); PLATELET COUNT 261 x10^3/uL (140-400); RED BLOOD COUNT 3.03 x10^6/uL (3.50-5.40); RED CELL DISTRIBUTION WIDTH 15.3 % (11.5-14.5); WHITE BLOOD COUNT 6.5 x10^3/uL (4.0-11.0)
[2021-03-26 10:24] LABS: FECAL OB PT POSITIVE (NEG)
[2021-03-26 10:25] LABS: FECAL OB PT NEGATIVE (NEG)
[2021-03-26 10:49] LABS: CALCIUM 8.6 mg/dL (8.5-10.1); GFR 55.3; POTASSIUM 4.2 mmol/L (3.5-5.1)
[2021-03-26 10:55] LABS: ALBUMIN 3.2 g/dL (3.4-5.0); TOTAL BILIRUBIN 0.3 mg/dL (0.2-1.0); TOTAL PROTEIN 6.5 g/dL (6.4-8.2)
== END ==
LOC: ONCLAB 09:38
PROVIDERS: ATTEND Internal Medicine Hematology & Oncology
DX: C50.912 Malignant neoplasm of unspecified site of left female breast (principal); D64.81 Anemia due to antineoplastic chemotherapy
CPT/HCPCS: 36415; 80053; 82274; 85025

== ENCOUNTER → 2021-04-15 | Outpatient (CLI) | payer MEDICARE ==
[2021-04-15 11:39] LABS: BASO # 0.1 x10^3/uL (0.0-0.2); BASO % 1 % (0-3); EOS # 0.7 x10^3/uL (0.0-0.7); EOS % 12 % (0-3); HEMATOCRIT 32.1 % (36.0-47.0); HEMOGLOBIN 10.5 g/dL (12.0-15.5); LYMPH # 0.7 x10^3/uL (1.0-4.8); LYMPH % 12 % (24-48); MEAN CORPUSCULAR HEMOGLOBIN 30 pg (25-35); MEAN CORPUSCULAR HGB CONC 33 g/dL (31-37); MEAN CORPUSCULAR VOLUME 92 fL (79-100); MONO # 0.8 x10^3/uL (0.0-1.1); MONO % 14 % (0-9); NEUT # 3.5 x10^3/uL (1.8-7.7); NEUT % 60 % (31-73); PLATELET COUNT 270 x10^3/uL (140-400); RED BLOOD COUNT 3.51 x10^6/uL (3.50-5.40); WHITE BLOOD COUNT 5.9 x10^3/uL (4.0-11.0)
[2021-04-15 11:46] LABS: CALCIUM 8.8 mg/dL (8.5-10.1); CREATININE 0.9 mg/dL (0.6-1.0); GFR 62.5; POTASSIUM 4.2 mmol/L (3.5-5.1)
[2021-04-15 11:56] LABS: ALBUMIN 3.5 g/dL (3.4-5.0); TOTAL BILIRUBIN 0.3 mg/dL (0.2-1.0); TOTAL PROTEIN 6.9 g/dL (6.4-8.2)
== END ==
LOC: ONCLAB 09:58
PROVIDERS: ATTEND Internal Medicine Hematology & Oncology
DX: C50.912 Malignant neoplasm of unspecified site of left female breast (principal)
CPT/HCPCS: 36415; 80053; 85025

== ENCOUNTER → 2021-05-07 | Outpatient (CLI) | payer MEDICARE ==
[2021-05-07 10:38] LABS: BASO # 0.1 x10^3/uL (0.0-0.2); BASO % 1 % (0-3); EOS # 1.5 x10^3/uL (0.0-0.7); EOS % 24 % (0-3); HEMATOCRIT 31.5 % (36.0-47.0); HEMOGLOBIN 10.4 g/dL (12.0-15.5); LYMPH # 0.9 x10^3/uL (1.0-4.8); LYMPH % 15 % (24-48); MEAN CORPUSCULAR HEMOGLOBIN 29 pg (25-35); MEAN CORPUSCULAR HGB CONC 33 g/dL (31-37); MEAN CORPUSCULAR VOLUME 90 fL (79-100); MONO # 0.7 x10^3/uL (0.0-1.1); MONO % 12 % (0-9); NEUT % 48 % (31-73); PLATELET COUNT 255 x10^3/uL (140-400); RED BLOOD COUNT 3.52 x10^6/uL (3.50-5.40); RED CELL DISTRIBUTION WIDTH 13.4 % (11.5-14.5); WHITE BLOOD COUNT 6.1 x10^3/uL (4.0-11.0)
[2021-05-07 10:56] LABS: CALCIUM 8.8 mg/dL (8.5-10.1); CREATININE 0.9 mg/dL (0.6-1.0); GFR 62.5
[2021-05-07 10:57] LABS: ALBUMIN 3.4 g/dL (3.4-5.0); TOTAL BILIRUBIN 0.2 mg/dL (0.2-1.0); TOTAL PROTEIN 6.7 g/dL (6.4-8.2)
[2021-05-07 11:37] LABS: % BANDS 7 % (0-9); % EOS 22 % (0-5); % LYMPHS 13 % (24-48); % MONOS 8 % (0-10); % SEGS 50 % (35-66); OVALOCYTES FEW; PLT ESTIMATE ADEQUATE (ADEQUATE)
== END ==
LOC: ONCLAB 09:51
PROVIDERS: ATTEND Physician Assistant
DX: C50.912 Malignant neoplasm of unspecified site of left female breast (principal)
CPT/HCPCS: 36415; 80053; 82728; 83540; 83550; 85007; 85025

== ENCOUNTER → 2021-05-28 | Outpatient (CLI) | payer MEDICARE ==
--- NOTE | 2021-05-28 19:04 | CARD ---
MR#: [id number] Date of Study: 05/28/2021 Ordering Physician: PAPITO ANGUIANO, Referring Physician: PAPITO ANGUIANO, Tech: Reinaldo Tai [facility] APPROVED REPORT EXAM: Two-dimensional and M-mode echocardiogram with Doppler and color Doppler. Other Information HR: 73bpm INDICATION Murmur 2D DIMENSIONS RVDd2.9 (2.9-3.5cm)Left Atrium(2D)4.3 (1.6-4.0cm) IVSd1.0 (0.7-1.1cm)Aortic Root(2D)3.4 (2.0-3.7cm) LVDd5.3 (3.9-5.9cm)LVOT Diameter2.0 (1.8-2.4cm) PWd1.0 (0.7-1.1cm)LVDs3.6 (2.5-4.0cm) FS (%) 32.6 %SV81.0 ml Aortic Valve AoV Peak Jefferson.204.1cm/sAoV VTI49.1cm AO Peak GR.16.7mmHgLVOT Peak Jefferson.109.5cm/s LVOT VTI 30.98cmAO Mean GR.8mmHg CATHLEEN (VMAX)1.58uy8DWN (VTI)1.99cm2 AI P 1/2 Mbyx551am Mitral Valve MV E Cweepzja69.5cm/sMV DECEL DPLO163sd MV A Xxbjxfep68.4cm/sMV E Mean Gr.2mmHg MV FOO24lqU/A Ratio0.9 MVA (PHT)3.75cm2 TDI E/Lateral E'8.6E/Medial E'12.1 Pulmonary Valve PV Peak Mgqrrsrx456.7cm/sPV Peak Grad.5mmHg Tricuspid Valve TR P. Cyrmyyuk385hu/sTR Peak Gr.29mmHg Pulmonary Vein S1 Kevpcvop68.1cm/sD2 Kzfxdeyt52.6cm/s LEFT VENTRICLE The left ventricle is normal size. There is normal left ventricular wall thickness. The left ventricu lar systolic function is normal and the ejection fraction is within normal range. The Ejection Fracti on is 55-60%. There is normal LV segmental wall motion. Transmitral Doppler flow pattern is Grade I-a bnormal relaxation pattern. No left ventricle thrombus noted on this study. There is no ventricular s eptal defect visualized. There is no left ventricular aneurysm. There is no mass noted in the left ve ntricle. RIGHT VENTRICLE The right ventricle is normal size. There is normal right ventricular wall thickness. The right ventr icular systolic function is normal. ATRIA The left atrium is mildly dilated. The right atrium size is normal. Atrial septum is midly anuerysmal with bowing to the right. AORTIC VALVE The aortic valve is thickened but opens well. Doppler and Color Flow revealed mild aortic regurgitati on. There is no significant aortic valvular stenosis. There is no aortic valvular vegetation. MITRAL VALVE The mitral valve is normal in structure and function. There is no evidence of mitral valve prolapse. There is no mitral valve stenosis. Doppler and Color-flow revealed mild mitral regurgitation. TRICUSPID VALVE The tricuspid valve is normal in structure and function. Doppler and Color Flow revealed mild tricusp id regurgitation. There is no tricuspid valve prolapse or vegetation. There is no tricuspid valve renard nosis. PULMONIC VALVE The pulmonary valve is normal in structure and function. Trivial pulmonic regurgitation There is no p ulmonic valvular stenosis. GREAT VESSELS The aortic root is normal in size. The ascending aorta is normal in size. The pulmonary artery is nor mal. The IVC is normal in size and collapses >50% with inspiration. PERICARDIAL EFFUSION There is no pleural effusion. There is no evidence of significant pericardial effusion. Critical Notification Critical Value: No <Conclusion> The left ventricle is normal size. The left ventricular systolic function is normal and the ejection fraction is within normal range. The Ejection Fraction is 55-60%. Doppler and Color Flow revealed mild aortic regurgitation. There is no significant aortic valvular stenosis. Doppler and Color-flow revealed mild mitral regurgitation. Doppler and Color Flow revealed mild tricuspid regurgitation. Signed by : Hossein Claudio MD Electronically Approved : 05/28/2021 19:04:06
== END ==
LOC: ECHO 07:59
PROVIDERS: ATTEND Internal Medicine Hematology & Oncology
DX: C50.912 Malignant neoplasm of unspecified site of left female breast (principal); I08.8 Other rheumatic multiple valve diseases
CPT/HCPCS: 93306

== ENCOUNTER → 2021-05-28 | Outpatient (CLI) | payer MEDICARE ==
[2021-05-28 09:47] LABS: BASO # 0.1 x10^3/uL (0.0-0.2); BASO % 1 % (0-3); EOS # 1.8 x10^3/uL (0.0-0.7); EOS % 28 % (0-3); HEMATOCRIT 34.3 % (36.0-47.0); HEMOGLOBIN 11.4 g/dL (12.0-15.5); LYMPH # 0.8 x10^3/uL (1.0-4.8); LYMPH % 12 % (24-48); MEAN CORPUSCULAR HEMOGLOBIN 30 pg (25-35); MEAN CORPUSCULAR HGB CONC 33 g/dL (31-37); MEAN CORPUSCULAR VOLUME 89 fL (79-100); MONO # 0.7 x10^3/uL (0.0-1.1); MONO % 11 % (0-9); NEUT # 3.2 x10^3/uL (1.8-7.7); NEUT % 48 % (31-73); PLATELET COUNT 242 x10^3/uL (140-400); RED BLOOD COUNT 3.86 x10^6/uL (3.50-5.40); RED CELL DISTRIBUTION WIDTH 13.5 % (11.5-14.5); WHITE BLOOD COUNT 6.6 x10^3/uL (4.0-11.0)
[2021-05-28 10:00] LABS: CREATININE 0.9 mg/dL (0.6-1.0); GFR 62.5; POTASSIUM 4.1 mmol/L (3.5-5.1)
[2021-05-28 10:03] LABS: ALBUMIN 3.4 g/dL (3.4-5.0); ALBUMIN/GLOBULIN RATIO 0.9 (1.0-1.7); TOTAL BILIRUBIN 0.1 mg/dL (0.2-1.0)
== END ==
LOC: ONCLAB 09:09
PROVIDERS: ATTEND Physician Assistant
DX: C50.912 Malignant neoplasm of unspecified site of left female breast (principal)
CPT/HCPCS: 36415; 80053; 85025

== ENCOUNTER → 2021-06-18 | Outpatient (CLI) | payer MEDICARE ==
[2021-06-18 11:08] LABS: BASO # 0.1 x10^3/uL (0.0-0.2); BASO % 1 % (0-3); EOS # 2.7 x10^3/uL (0.0-0.7); EOS % 34 % (0-3); HEMATOCRIT 33.8 % (36.0-47.0); HEMOGLOBIN 11.3 g/dL (12.0-15.5); LYMPH # 0.9 x10^3/uL (1.0-4.8); LYMPH % 11 % (24-48); MEAN CORPUSCULAR HEMOGLOBIN 29 pg (25-35); MEAN CORPUSCULAR HGB CONC 33 g/dL (31-37); MEAN CORPUSCULAR VOLUME 88 fL (79-100); MONO # 0.8 x10^3/uL (0.0-1.1); MONO % 10 % (0-9); NEUT # 3.5 x10^3/uL (1.8-7.7); NEUT % 45 % (31-73); PLATELET COUNT 261 x10^3/uL (140-400); RED BLOOD COUNT 3.85 x10^6/uL (3.50-5.40); RED CELL DISTRIBUTION WIDTH 13.6 % (11.5-14.5); WHITE BLOOD COUNT 7.9 x10^3/uL (4.0-11.0)
[2021-06-18 11:58] LABS: CALCIUM 9.1 mg/dL (8.5-10.1); CREATININE 0.9 mg/dL (0.6-1.0); GFR 62.5; POTASSIUM 3.9 mmol/L (3.5-5.1)
[2021-06-18 12:18] LABS: ALBUMIN 3.5 g/dL (3.4-5.0); TOTAL BILIRUBIN 0.2 mg/dL (0.2-1.0); TOTAL PROTEIN 6.9 g/dL (6.4-8.2)
[2021-06-18 12:32] LABS: % BASOS 1 % (0-3); % EOS 31 % (0-5); % LYMPHS 15 % (24-48); % MONOS 10 % (0-10); % SEGS 43 % (35-66); PLT ESTIMATE ADEQUATE (ADEQUATE)
== END ==
LOC: ONCLAB 10:06
PROVIDERS: ATTEND Internal Medicine Hematology & Oncology
DX: C50.912 Malignant neoplasm of unspecified site of left female breast (principal)
CPT/HCPCS: 36415; 80053; 85007; 85025

== ENCOUNTER → 2021-07-10 | Outpatient (CLI) | payer MEDICARE ==
[2021-07-10 09:48] LABS: BASO # 0.1 x10^3/uL (0.0-0.2); BASO % 1 % (0-3); EOS # 2.1 x10^3/uL (0.0-0.7); EOS % 28 % (0-3); HEMATOCRIT 33.8 % (36.0-47.0); HEMOGLOBIN 11.2 g/dL (12.0-15.5); LYMPH % 14 % (24-48); MEAN CORPUSCULAR HEMOGLOBIN 29 pg (25-35); MEAN CORPUSCULAR HGB CONC 33 g/dL (31-37); MEAN CORPUSCULAR VOLUME 88 fL (79-100); MONO # 0.7 x10^3/uL (0.0-1.1); MONO % 10 % (0-9); NEUT # 3.5 x10^3/uL (1.8-7.7); NEUT % 47 % (31-73); PLATELET COUNT 274 x10^3/uL (140-400); RED BLOOD COUNT 3.86 x10^6/uL (3.50-5.40); RED CELL DISTRIBUTION WIDTH 13.7 % (11.5-14.5); WHITE BLOOD COUNT 7.5 x10^3/uL (4.0-11.0)
[2021-07-10 09:53] LABS: CALCIUM 8.8 mg/dL (8.5-10.1); CREATININE 1.1 mg/dL (0.6-1.0); GFR 49.5; POTASSIUM 4.1 mmol/L (3.5-5.1)
[2021-07-10 10:00] LABS: ALBUMIN 3.4 g/dL (3.4-5.0); TOTAL BILIRUBIN 0.3 mg/dL (0.2-1.0); TOTAL PROTEIN 6.8 g/dL (6.4-8.2)
[2021-07-10 10:50] LABS: % BASOS 1 % (0-3); % EOS 21 % (0-5); % LYMPHS 22 % (24-48); % MONOS 9 % (0-10); % SEGS 47 % (35-66); PLT ESTIMATE ADEQUATE (ADEQUATE)
== END ==
LOC: ONCLAB 08:43
PROVIDERS: ATTEND Physician Assistant
DX: C50.912 Malignant neoplasm of unspecified site of left female breast (principal)
CPT/HCPCS: 36415; 80053; 85007; 85025

== ENCOUNTER → 2021-07-31 | Outpatient (CLI) | payer MEDICARE ==
[2021-07-31 09:45] LABS: BASO # 0.1 x10^3/uL (0.0-0.2); BASO % 1 % (0-3); EOS % 27 % (0-3); HEMATOCRIT 32.9 % (36.0-47.0); HEMOGLOBIN 10.8 g/dL (12.0-15.5); LYMPH # 1.1 x10^3/uL (1.0-4.8); LYMPH % 14 % (24-48); MEAN CORPUSCULAR HEMOGLOBIN 29 pg (25-35); MEAN CORPUSCULAR HGB CONC 33 g/dL (31-37); MEAN CORPUSCULAR VOLUME 88 fL (79-100); MONO # 0.6 x10^3/uL (0.0-1.1); MONO % 8 % (0-9); NEUT # 3.7 x10^3/uL (1.8-7.7); NEUT % 49 % (31-73); PLATELET COUNT 289 x10^3/uL (140-400); RED BLOOD COUNT 3.72 x10^6/uL (3.50-5.40); RED CELL DISTRIBUTION WIDTH 13.8 % (11.5-14.5); WHITE BLOOD COUNT 7.5 x10^3/uL (4.0-11.0)
[2021-07-31 09:59] LABS: CALCIUM 8.8 mg/dL (8.5-10.1); CREATININE 1.1 mg/dL (0.6-1.0); GFR 49.5; POTASSIUM 3.9 mmol/L (3.5-5.1)
[2021-07-31 10:06] LABS: ALBUMIN 3.3 g/dL (3.4-5.0); TOTAL BILIRUBIN 0.3 mg/dL (0.2-1.0); TOTAL PROTEIN 6.7 g/dL (6.4-8.2)
[2021-07-31 11:16] LABS: % BANDS 2 % (0-9); % BASOS 3 % (0-3); % EOS 21 % (0-5); % LYMPHS 10 % (24-48); % MONOS 6 % (0-10); % SEGS 58 % (35-66); PLT ESTIMATE ADEQUATE (ADEQUATE)
== END ==
LOC: ONCLAB 09:08
PROVIDERS: ATTEND Physician Assistant
DX: C50.912 Malignant neoplasm of unspecified site of left female breast (principal)
CPT/HCPCS: 36415; 80053; 85007; 85025

== ENCOUNTER → 2021-08-21 | Outpatient (CLI) | payer MEDICARE ==
[2021-08-21 09:38] LABS: CALCIUM 8.5 mg/dL (8.5-10.1); GFR 55.3; POTASSIUM 3.8 mmol/L (3.5-5.1)
[2021-08-21 09:44] LABS: ALBUMIN 3.2 g/dL (3.4-5.0); ALBUMIN/GLOBULIN RATIO 0.9 (1.0-1.7); BASO # 0.1 x10^3/uL (0.0-0.2); BASO % 1 % (0-3); EOS # 1.5 x10^3/uL (0.0-0.7); EOS % 23 % (0-3); HEMATOCRIT 32.7 % (36.0-47.0); HEMOGLOBIN 10.7 g/dL (12.0-15.5); LYMPH # 0.8 x10^3/uL (1.0-4.8); LYMPH % 12 % (24-48); MEAN CORPUSCULAR HEMOGLOBIN 29 pg (25-35); MEAN CORPUSCULAR HGB CONC 33 g/dL (31-37); MEAN CORPUSCULAR VOLUME 89 fL (79-100); MONO # 0.7 x10^3/uL (0.0-1.1); MONO % 11 % (0-9); NEUT # 3.4 x10^3/uL (1.8-7.7); NEUT % 53 % (31-73); PLATELET COUNT 263 x10^3/uL (140-400); RED BLOOD COUNT 3.66 x10^6/uL (3.50-5.40); RED CELL DISTRIBUTION WIDTH 14.4 % (11.5-14.5); TOTAL BILIRUBIN 0.3 mg/dL (0.2-1.0); TOTAL PROTEIN 6.7 g/dL (6.4-8.2); WHITE BLOOD COUNT 6.4 x10^3/uL (4.0-11.0)
[2021-08-21 12:20] LABS: % BANDS 3 % (0-9); % EOS 22 % (0-5); % LYMPHS 15 % (24-48); % MONOS 10 % (0-10); % SEGS 50 % (35-66)
[2021-08-21 12:22] LABS: PLT ESTIMATE ADEQUATE (ADEQUATE)
== END ==
LOC: ONCLAB 09:06
PROVIDERS: ATTEND Internal Medicine Hematology & Oncology
DX: C50.912 Malignant neoplasm of unspecified site of left female breast (principal)
CPT/HCPCS: 36415; 80053; 85007; 85025

== ENCOUNTER → 2021-08-29 | Outpatient (CLI) | payer MEDICARE ==
--- NOTE | 2021-08-30 11:34 | CARD ---
MR#: [id number] Date of Study: 08/29/2021 Ordering Physician: MONICO MARTINEZ, Referring Physician: MONICO MARTINEZ, Tech: Ledy Squires, [facility] APPROVED REPORT EXAM: Two-dimensional and M-mode echocardiogram with Doppler and color Doppler. Other Information Quality : AverageHR: 62bpm INDICATION LV Function:SystolicDiastolic RISK FACTORS Hypertension 2D DIMENSIONS Left Atrium(2D)3.4 (1.6-4.0cm)IVSd1.0 (0.7-1.1cm) Aortic Root(2D)3.0 (2.0-3.7cm)LVDd5.1 (3.9-5.9cm) LVOT Diameter2.0 (1.8-2.4cm)PWd0.8 (0.7-1.1cm) LVDs3.3 (2.5-4.0cm)LVEF(%)56.0 (>50%) Aortic Valve AoV Peak Jefferson.208.6cm/sAoV VTI45.5cm AO Peak GR.17.4mmHgLVOT Peak Jefferson.161.7cm/s LVOT VTI 39.58cmAO Mean GR.9mmHg AI P 1/2 Vzuo358vx Mitral Valve MV E Yemommdb25.7cm/sMV DECEL GHEJ505ol MV A Bbhfaqmx85.9cm/sMV E Mean Gr.1mmHg MV FZD54rgI/A Ratio1.2 MVA (PHT)5.09cm2 TDI E/Lateral E'8.9E/Medial E'14.6 Pulmonary Valve PV Peak Kjzqjfeo20.1cm/sPV Peak Grad.3mmHg Tricuspid Valve TR P. Xhszdkrp067zr/sTR Peak Gr.27mmHg Pulmonary Vein S1 Tsvmzdya21.0cm/sD2 Mzuyqrnz15.4cm/s PVa hgiurjop112ummm LEFT VENTRICLE The left ventricle is normal size. There is normal left ventricular wall thickness. The left ventricu lar systolic function is normal and the ejection fraction is within normal range. The Ejection Fracti on is 50-55%. There is normal LV segmental wall motion. Transmitral Doppler flow pattern is Grade II- pseudonormal filling dynamics. RIGHT VENTRICLE The right ventricle is normal size. There is normal right ventricular wall thickness. The right ventr icular systolic function is normal. ATRIA The left atrium is mildly dilated. The right atrium size is normal. The interatrial septum is intact with no evidence for an atrial septal defect or patent foramen ovale as noted on 2-D or Doppler imagi ng. AORTIC VALVE The aortic valve is normal in structure and function. Doppler and Color Flow revealed mild aortic reg urgitation. There is no significant aortic valvular stenosis. MITRAL VALVE The mitral valve is normal in structure and function. There is no evidence of mitral valve prolapse. There is no mitral valve stenosis. Doppler and Color-flow revealed trace mitral regurgitation. TRICUSPID VALVE The tricuspid valve is normal in structure and function. Doppler and Color Flow revealed trace tricus pid regurgitation with an estimated PAP of 34 mmHg. There is no tricuspid valve stenosis. PULMONIC VALVE The pulmonic valve is not well visualized. Doppler and Color Flow revealed mild pulmonic valvular reg urgitation. There is no pulmonic valvular stenosis. GREAT VESSELS The aortic root is normal in size. The IVC was not visualized. PERICARDIAL EFFUSION There is no evidence of significant pericardial effusion. Critical Notification Critical Value: No <Conclusion> The left ventricular systolic function is normal and the ejection fraction is within normal range. Th e Ejection Fraction is 50-55%. There is normal LV segmental wall motion. Signed by : Vinayak Riggs, Electronically Approved : 08/30/2021 11:34:16
== END ==
LOC: ECHO 10:08
PROVIDERS: ATTEND Physician Assistant
DX: C50.912 Malignant neoplasm of unspecified site of left female breast (principal); I08.8 Other rheumatic multiple valve diseases
CPT/HCPCS: 93306

== ENCOUNTER → 2021-09-11 | Outpatient (CLI) | payer MEDICARE ==
[2021-09-11 09:32] LABS: BASO # 0.1 x10^3/uL (0.0-0.2); BASO % 1 % (0-3); EOS # 1.1 x10^3/uL (0.0-0.7); EOS % 17 % (0-3); HEMATOCRIT 32.7 % (36.0-47.0); LYMPH # 0.9 x10^3/uL (1.0-4.8); LYMPH % 14 % (24-48); MEAN CORPUSCULAR HEMOGLOBIN 30 pg (25-35); MEAN CORPUSCULAR HGB CONC 34 g/dL (31-37); MEAN CORPUSCULAR VOLUME 90 fL (79-100); MONO # 0.8 x10^3/uL (0.0-1.1); MONO % 12 % (0-9); NEUT # 3.7 x10^3/uL (1.8-7.7); NEUT % 56 % (31-73); PLATELET COUNT 250 x10^3/uL (140-400); RED BLOOD COUNT 3.65 x10^6/uL (3.50-5.40); RED CELL DISTRIBUTION WIDTH 13.5 % (11.5-14.5); WHITE BLOOD COUNT 6.6 x10^3/uL (4.0-11.0)
[2021-09-11 09:45] LABS: CALCIUM 8.4 mg/dL (8.5-10.1); CREATININE 0.9 mg/dL (0.6-1.0); GFR 62.3; POTASSIUM 3.9 mmol/L (3.5-5.1)
[2021-09-11 09:46] LABS: ALBUMIN 3.3 g/dL (3.4-5.0); TOTAL BILIRUBIN 0.3 mg/dL (0.2-1.0); TOTAL PROTEIN 6.7 g/dL (6.4-8.2)
[2021-09-11 10:31] LABS: % BANDS 1 % (0-9); % EOS 11 % (0-5); % LYMPHS 17 % (24-48); % MONOS 13 % (0-10); % SEGS 58 % (35-66); PLT ESTIMATE ADEQUATE (ADEQUATE)
== END ==
LOC: ONCLAB 09:13
PROVIDERS: ATTEND Physician Assistant
DX: C50.912 Malignant neoplasm of unspecified site of left female breast (principal)
CPT/HCPCS: 36415; 80053; 85007; 85025

== ENCOUNTER → 2021-10-02 | Outpatient (CLI) | payer MEDICARE ==
[2021-10-02 09:25] LABS: BASO # 0.1 x10^3/uL (0.0-0.2); BASO % 1 % (0-3); EOS % 14 % (0-3); HEMOGLOBIN 11.3 g/dL (12.0-15.5); LYMPH % 15 % (24-48); MEAN CORPUSCULAR HEMOGLOBIN 30 pg (25-35); MEAN CORPUSCULAR HGB CONC 33 g/dL (31-37); MEAN CORPUSCULAR VOLUME 89 fL (79-100); MONO # 0.8 x10^3/uL (0.0-1.1); MONO % 11 % (0-9); NEUT # 4.1 x10^3/uL (1.8-7.7); NEUT % 59 % (31-73); PLATELET COUNT 270 x10^3/uL (140-400); RED BLOOD COUNT 3.82 x10^6/uL (3.50-5.40); RED CELL DISTRIBUTION WIDTH 12.8 % (11.5-14.5)
[2021-10-02 09:37] LABS: CALCIUM 8.5 mg/dL (8.5-10.1); CREATININE 0.8 mg/dL (0.6-1.0); GFR 71.3
[2021-10-02 09:43] LABS: ALBUMIN 3.2 g/dL (3.4-5.0); TOTAL BILIRUBIN 0.2 mg/dL (0.2-1.0); TOTAL PROTEIN 6.5 g/dL (6.4-8.2)
== END ==
LOC: ONCLAB 09:09
PROVIDERS: ATTEND Internal Medicine Hematology & Oncology
DX: C50.912 Malignant neoplasm of unspecified site of left female breast (principal)
CPT/HCPCS: 36415; 80053; 85025

== ENCOUNTER → 2021-10-23 | Outpatient (CLI) | payer MEDICARE ==
[2021-10-23 09:29] LABS: BASO # 0.1 x10^3/uL (0.0-0.2); BASO % 2 % (0-3); EOS # 0.7 x10^3/uL (0.0-0.7); EOS % 13 % (0-3); HEMATOCRIT 35.2 % (36.0-47.0); HEMOGLOBIN 11.5 g/dL (12.0-15.5); LYMPH # 0.8 x10^3/uL (1.0-4.8); LYMPH % 16 % (24-48); MEAN CORPUSCULAR HEMOGLOBIN 29 pg (25-35); MEAN CORPUSCULAR HGB CONC 33 g/dL (31-37); MEAN CORPUSCULAR VOLUME 89 fL (79-100); MONO # 0.7 x10^3/uL (0.0-1.1); MONO % 13 % (0-9); NEUT # 3.1 x10^3/uL (1.8-7.7); NEUT % 57 % (31-73); PLATELET COUNT 246 x10^3/uL (140-400); RED BLOOD COUNT 3.98 x10^6/uL (3.50-5.40); RED CELL DISTRIBUTION WIDTH 12.7 % (11.5-14.5); WHITE BLOOD COUNT 5.4 x10^3/uL (4.0-11.0)
[2021-10-23 09:30] LABS: CALCIUM 8.5 mg/dL (8.5-10.1); CREATININE 0.8 mg/dL (0.6-1.0); GFR 71.3; POTASSIUM 3.9 mmol/L (3.5-5.1)
[2021-10-23 09:36] LABS: ALBUMIN 3.2 g/dL (3.4-5.0); ALBUMIN/GLOBULIN RATIO 0.8 (1.0-1.7); TOTAL BILIRUBIN 0.2 mg/dL (0.2-1.0)
== END ==
LOC: ONCLAB 09:04
PROVIDERS: ATTEND Internal Medicine Hematology & Oncology
DX: C50.912 Malignant neoplasm of unspecified site of left female breast (principal)
CPT/HCPCS: 36415; 80053; 85025

== ENCOUNTER → 2021-11-25 | Outpatient (CLI) | payer MEDICARE ==
[2021-11-25 10:21] LABS: BASO # 0.1 x10^3/uL (0.0-0.2); BASO % 1 % (0-3); EOS # 0.6 x10^3/uL (0.0-0.7); EOS % 12 % (0-3); HEMATOCRIT 34.7 % (36.0-47.0); HEMOGLOBIN 11.2 g/dL (12.0-15.5); LYMPH # 0.9 x10^3/uL (1.0-4.8); LYMPH % 18 % (24-48); MEAN CORPUSCULAR HEMOGLOBIN 28 pg (25-35); MEAN CORPUSCULAR HGB CONC 32 g/dL (31-37); MEAN CORPUSCULAR VOLUME 87 fL (79-100); MONO # 0.7 x10^3/uL (0.0-1.1); MONO % 13 % (0-9); NEUT # 2.9 x10^3/uL (1.8-7.7); NEUT % 56 % (31-73); PLATELET COUNT 234 x10^3/uL (140-400); RED BLOOD COUNT 3.97 x10^6/uL (3.50-5.40); RED CELL DISTRIBUTION WIDTH 12.8 % (11.5-14.5); WHITE BLOOD COUNT 5.2 x10^3/uL (4.0-11.0)
[2021-11-25 10:30] LABS: CALCIUM 8.4 mg/dL (8.5-10.1); CREATININE 0.8 mg/dL (0.6-1.0); GFR 71.3; POTASSIUM 4.1 mmol/L (3.5-5.1)
[2021-11-25 10:37] LABS: ALBUMIN 3.2 g/dL (3.4-5.0); ALBUMIN/GLOBULIN RATIO 0.9 (1.0-1.7); TOTAL BILIRUBIN 0.3 mg/dL (0.2-1.0); TOTAL PROTEIN 6.7 g/dL (6.4-8.2)
== END ==
LOC: ONCLAB 09:38
PROVIDERS: ATTEND Internal Medicine Hematology & Oncology
DX: C50.912 Malignant neoplasm of unspecified site of left female breast (principal)
CPT/HCPCS: 36415; 80053; 85025

== ENCOUNTER → 2021-12-10 | Outpatient (CLI) | payer MEDICARE ==
--- NOTE | 2021-12-11 10:33 | CARD ---
MR#: [id number] Date of Study: 12/10/2021 Ordering Physician: MONICO MARTINEZ, Referring Physician: MONICO MARTINEZ, Tech: Reinaldo Tai [facility] APPROVED REPORT EXAM: Two-dimensional and M-mode echocardiogram with Doppler and color Doppler. Other Information Quality : AverageHR: 60bpm Rhythm : NSR INDICATION Aortic Valve Disease High risk disease monitoring. Breast CA RISK FACTORS Breast CA 2D DIMENSIONS Left Atrium(2D)4.1 (1.6-4.0cm)IVSd1.1 (0.7-1.1cm) Aortic Root(2D)3.3 (2.0-3.7cm)LVDd4.8 (3.9-5.9cm) LVOT Diameter2.1 (1.8-2.4cm)PWd1.0 (0.7-1.1cm) LVDs3.2 (2.5-4.0cm) Aortic Valve AoV Peak Jefferson.199.2cm/sAoV VTI44.8cm AO Peak GR.15.9mmHgLVOT Peak Jefferson.183.8cm/s LVOT VTI 44.18cmAO Mean GR.8mmHg CATHLEEN (VMAX)2.14dv1CKG (VTI)3.32cm2 AI P 1/2 Zntn269dl Mitral Valve MV E Smgvcmeq71.2cm/sMV DECEL XLUM319fy MV A Sapxcfps19.5cm/sMV CGV04sy E/A Ratio0.9MVA (PHT)4.70cm2 TDI E/Lateral E'8.4E/Medial E'10.4 Pulmonary Valve PV Peak Cysrbzap57.4cm/sPV Peak Grad.3mmHg Tricuspid Valve TR P. Daktdmoc701ov/sTR Peak Gr.28mmHg Pulmonary Vein S1 Dtwrbsem04.7cm/sD2 Sqwryjpk85.4cm/s LEFT VENTRICLE The left ventricular size is upper normal. There is normal left ventricular wall thickness. The left ventricular systolic function is normal and the ejection fraction is within normal range. The Ejectio n Fraction is 55-60%. There is normal LV segmental wall motion. No left ventricle thrombus noted on t his study. There is no ventricular septal defect visualized. There is no left ventricular aneurysm. T here is no mass noted in the left ventricle. RIGHT VENTRICLE The right ventricle is borderline dilated. There is normal right ventricular wall thickness. The righ t ventricular systolic function is normal. ATRIA The left atrium is moderately dilated. The right atrium is borderline dilated. The interatrial septum is intact with no evidence for an atrial septal defect or patent foramen ovale as noted on 2-D or Do ppler imaging. AORTIC VALVE The aortic valve is mildly sclerotic. Doppler and Color Flow revealed moderate aortic regurgitation. There is no significant aortic valvular stenosis. There is no aortic valvular vegetation. MITRAL VALVE The mitral valve is thickened but opens well. There is no evidence of mitral valve prolapse. There is no mitral valve stenosis. Doppler and Color-flow revealed mild mitral regurgitation. TRICUSPID VALVE The tricuspid valve is normal in structure and function. Doppler and Color Flow revealed mild tricusp id regurgitation. There is no tricuspid valve prolapse or vegetation. There is no tricuspid valve renard nosis. PULMONIC VALVE The pulmonary valve is normal in structure and function. There is trivial pulmonic regurgitation. The re is no pulmonic valvular stenosis. GREAT VESSELS The aortic root is normal in size. The ascending aorta is normal in size. The pulmonary artery is nor mal. The IVC is normal in size and collapses >50% with inspiration. PERICARDIAL EFFUSION There is no pleural effusion. There is no evidence of significant pericardial effusion. Critical Notification Critical Value: No <Conclusion> The left ventricular size is upper normal. The left ventricular systolic function is normal and the ejection fraction is within normal range. The Ejection Fraction is 55-60%. Doppler and Color Flow revealed moderate aortic regurgitation. There is no significant aortic valvular stenosis. Doppler and Color-flow revealed mild mitral regurgitation. Doppler and Color Flow revealed mild tricuspid regurgitation. Signed by : Hossein Claudio MD Electronically Approved : 12/11/2021 10:33:33
== END ==
LOC: ECHO 10:47
PROVIDERS: ATTEND Physician Assistant
DX: C50.912 Malignant neoplasm of unspecified site of left female breast (principal); I08.8 Other rheumatic multiple valve diseases
CPT/HCPCS: 93306; C8929

== ENCOUNTER → 2022-03-17 | Outpatient (CLI) | payer MEDICARE ==
[2022-03-17 11:00] LABS: CALCIUM 8.7 mg/dL (8.5-10.1); CREATININE 0.9 mg/dL (0.6-1.0); GFR 62.3; POTASSIUM 4.2 mmol/L (3.5-5.1)
[2022-03-17 11:01] LABS: BASO # 0.1 x10^3/uL (0.0-0.2); BASO % 1 % (0-3); EOS # 0.7 x10^3/uL (0.0-0.7); EOS % 12 % (0-3); HEMATOCRIT 35.1 % (36.0-47.0); HEMOGLOBIN 11.7 g/dL (12.0-15.5); LYMPH % 18 % (24-48); MEAN CORPUSCULAR HEMOGLOBIN 30 pg (25-35); MEAN CORPUSCULAR HGB CONC 34 g/dL (31-37); MEAN CORPUSCULAR VOLUME 89 fL (79-100); MONO # 0.7 x10^3/uL (0.0-1.1); MONO % 12 % (0-9); NEUT # 3.4 x10^3/uL (1.8-7.7); NEUT % 57 % (31-73); PLATELET COUNT 268 x10^3/uL (140-400); RED BLOOD COUNT 3.94 x10^6/uL (3.50-5.40); RED CELL DISTRIBUTION WIDTH 13.5 % (11.5-14.5); WHITE BLOOD COUNT 5.9 x10^3/uL (4.0-11.0)
[2022-03-17 11:05] LABS: ALBUMIN 3.3 g/dL (3.4-5.0); ALBUMIN/GLOBULIN RATIO 0.9 (1.0-1.7); TOTAL BILIRUBIN 0.3 mg/dL (0.2-1.0); TOTAL PROTEIN 6.9 g/dL (6.4-8.2)
== END ==
LOC: ONCLAB 10:04
PROVIDERS: ATTEND Internal Medicine Hematology & Oncology
DX: C50.912 Malignant neoplasm of unspecified site of left female breast (principal)
CPT/HCPCS: 36415; 80053; 83615; 85025; 86300